=== PATIENT | male | born 1955 | race Two or more races ===

== ENCOUNTER 2018-11-18 08:18 | Emergency (ER) | payer MEDICAID ==
[~2018-11-18] VITALS: Ht 165.1 cm; Wt 90.9 kg
[2018-11-18 09:09] LABS: HEMATOCRIT 44.8 % (41-53); HEMOGLOBIN 14.7 g/dL (13.5-17.5); MEAN CORPUSCULAR HEMOGLOBIN 31.7 pg (26.0-34.0); MEAN CORPUSCULAR HGB CONC 32.9 G/dL (31.0-37.0); MEAN CORPUSCULAR VOLUME 96 fL (80-100); PLATELET COUNT (AUTO) 175 K/uL (150-450); RED BLOOD CELL COUNT(AUTO) 4.66 MIL/uL (4.50-5.90)
[2018-11-18 09:19] LABS: CALCIUM, TOTAL 10.5 mg/dL (8.8-10.5); CREATININE 2.7 mg/dL (0.60-1.30)
[2018-11-18 09:25] LABS: ALBUMIN 3.4 g/dL (3.4-5.0); BILIRUBIN,TOTAL 1.2 mg/dL (0.1-1.0); TOTAL PROTEIN, SERUM 8.3 g/dL (6.4-8.2)
[2018-11-18 10:28] LABS: BAND NEUTROPHILS % (MANUAL) 6 % (0-5); LYMPHOCYTES % (MANUAL) 5 % (22-44); MONOCYTES % (MANUAL) 6 % (2-9); SEGMENTED NEUTROPHILS % 83 % (40-70)
[2018-11-18] MEDS ORDERED: KETOROLAC TROMETHAMINE 60 MG/2 ML VIAL IM ONE (10:30)
[2018-11-18] MEDS ORDERED: OxyCODONE HCL/ACETAMINOPHEN 5-325 MG TABLET PO ONE (10:45)
[2018-11-18] MEDS ORDERED: MECLIZINE HCL 25 MG TABLET PO ONE (10:45)
[2018-11-18 12:02] VITALS: BP 122/71
== END 2018-11-18 14:09 | disposition home or self-care (01) ==
LOC: EMS 08:21
DX: N28.9 Disorder of kidney and ureter, unspecified (principal); R51 Headache
CPT/HCPCS: 36415; 70450; 80053; 85025; 96372; 99284; J1885